=== PATIENT | male | born 1990 | race Caucasian/White ===

== ENCOUNTER 2023-12-05 21:29 | Emergency (ER) | payer OTHER ==
[2023-12-05] MEDS ORDERED: Acetaminophen 500 MG TAB ONE (22:16)
[2023-12-05] MEDS ORDERED: Ondansetron ODT 4 MG TAB ONE (23:16)
== END 2023-12-05 23:22 ==
LOC: NAV ERS 21:29
DX: S06.0X0A Concussion without loss of consciousness, initial encounter (principal); S00.03XA Contusion of scalp, initial encounter; S00.11XA Contusion of right eyelid and periocular area, initial encounter; S00.431A Contusion of right ear, initial encounter; I10 Essential (primary) hypertension; R42 Dizziness and giddiness; Y04.0XXA Assault by unarmed brawl or fight, initial encounter
CPT/HCPCS: 70450; 70486; 72125; Q0162